=== PATIENT | female | born 1985 | race African-American/Black ===

== ENCOUNTER 2018-10-16 17:24 | Emergency (ER) | payer MEDICAID ==
[2018-10-16] MEDS ORDERED: NS 1,000 ML IV ONE (17:30)
--- NOTE | 2018-10-16 17:41 | EDPHY ---
H & P Stated Complaint: Med clear for correction, 6 months preg Time Seen by Provider: 10/16/18 17:27 HPI/ROS: Chief complaint: Medical clearance for correction, 6 months with cramping and spotting History of present illness: This is a 32-year-old female, 5, para 4 who presents with EMS and police for medical clearance to go to correction. Patient is currently 6 months . She has had intermittent cramping and spotting of dark blood throughout the . She continues to have this. She continues to have good movement. She denies other associated signs or symptoms including fevers, cold symptoms, trauma. Review of systems: A 10 point review of systems was obtained and other than described above was negative - Personal History LMP (Females 10-55): Current Tetanus/Diphtheria Vaccine: Yes Current Tetanus Diphtheria and Acellular Pertussis (TDAP): Yes Tetanus Vaccine Date: 2011 - Medical/Surgical History Hx Asthma: No Hx Chronic Respiratory Disease: No Hx Diabetes: No Hx Cardiac Disease: No Hx Renal Disease: No Hx Cirrhosis: No Hx Alcoholism: No Hx HIV/AIDS: No Hx Splenectomy or Spleen Trauma: No Other PMH: Kidney Laceration - Social History Smoking Status: Current some day smoker - Physical Exam Exam: General Appearance: Alert, no distress. Eyes: Pupils equal and round no pallor or injection. ENT, Mouth: Mucous membranes moist. Respiratory: There are no retractions, lungs are clear to auscultation. Cardiovascular: Regular rate and rhythm. Gastrointestinal: Bowel sounds are normal. abdomen. Nontender. Neurological: Alert and oriented x4. Strength and sensation intact and symmetrical. Skin: Warm and dry, no rashes. Musculoskeletal: Neck is supple non tender. Extremities are symmetrical, full range of motion. Psychiatric: Patient is oriented X 3, there is no agitation. Constitutional: Initial Vital Signs Temperature (C) 36.4 C 10/16/18 17:31 Heart Rate 121 H 10/16/18 17:31 Respiratory Rate 20 10/16/18 17:31 Blood Pressure 121/94 H 10/16/18 17:31 O2 Sat (%) 97 10/16/18 17:31 O2 Delivery Mode Room Air Allergies/Adverse Reactions: No Known Allergies Allergy (Unverified 10/16/18 17:30) Home Medications: Medication Instructions Recorded 10/16/18 Medical Decision Making - Diagnostics Imaging: Discussed imaging studies w/ call center nurse Radiologist ED Course/Re-evaluation: Patient is discussed with my secondary supervising physician Dr. Piotr Flores. Patient presents for medical clearance to go to correction. She is currently 6 months with mild cramping and dark blood spotting. This appears to be an ongoing issue. On presentation she is nontoxic. She is mildly hypertensive, although this improved in the ED. Blood studies are obtained, platelets, LFTs unremarkable. No protein in the blood. ultrasound is unremarkable. Labor and delivery has been asked to come and see the patient, they have monitored the patient and reports normal findings. I do not appreciate evidence of problems with the at this time. It does not appear that RhoGAM is indicated. She has been IV hydrated and is feeling better. She is cleared to go to correction. She is to continue with care. If symptoms worsen she is asked to come back to the emergency department. Differential Diagnosis: Included but not limited to normal , Kendall Alves contractions, placenta previa or abrupto, preeclampsia and eclampsia, premature contractions, , threatened miscarriage - Data Points Laboratory Results: Laboratory Results 10/16/18 17:40 10/16/18 17:40 Medications Given: Discontinued Medications Sodium Chloride (Ns) 1,000 mls @ 0 mls/hr IV EDNOW ONE; Wide Open PRN Reason: Protocol Stop: 10/16/18 17:31 Last Admin: 10/16/18 17:46 Dose: 1,000 mls Departure - Departure Disposition: Home, Routine, Self-Care Clinical Impression: Qualifiers: Weeks of gestation: 22 weeks Qualified Code(s): Z3A.22 - 22 weeks gestation of Condition: Good Instructions: (ED) Additional Instructions: Follow-up with your OBGYN for continued evaluation and care Drink plenty of fluids to stay hydrated Avoid the use of alcohol and drugs If symptoms worsen or new symptoms develop return to the emergency department for recheck. Patient is medically cleared to go to correction Referrals: Patient,NotPresent [Unknown] - As per Instructions Monisha Song MD [Medical Doctor] - As per Instructions
[2018-10-16 18:05] LABS: PLATELET COUNT 256 10^3/uL (150-400)
[2018-10-16 19:58] VITALS: BP 109/74
== END 2018-10-16 20:29 | disposition home or self-care (01) ==
LOC: EEVIPCON 17:24
DX: O26.852 Spotting complicating pregnancy, second trimester (principal); O99.332 Smoking (tobacco) complicating pregnancy, second trimester; F17.200 Nicotine dependence, unspecified, uncomplicated; Z3A.22 22 weeks gestation of pregnancy; Z95.1 Presence of aortocoronary bypass graft
CPT/HCPCS: 80305; G0480